=== PATIENT | male | born 1945 | race Caucasian/White ===

== ENCOUNTER → 2016-09-20 | Outpatient (CLI) | payer OTHER ==
[~2016-09-20] MED LIST: AMLO-110 PO; AMLO-114 PO; ATOR10TA82 PO; ATV/1 PO; ATV1 PO; B-COTAB18 PO; CALC1CHW PO; CARV12.52 PO; CARV25TA2 PO; CETI10TA84 PO; CHOL100010 PO; CINN1CAP2 PO; CLB/200 PO; DIPH-416 PO; HYDR-5688 PO; MAGN250T22 PO; MISC1CAP60 PO; MULT-506 PO; NEBI10TA2 PO; POTA99TA PO; PRLSR20 PO; RXC5 PO; rolaids
--- NOTE | 2016-09-20 09:40 | DIAGNOSTIC IMAGING REPORT ---
Study: Fusion CT of the sinuses HISTORY:. Nasal septal deviation. Chronic sinusitis. FINDINGS: Findings of prior antral window placement. This is patent on the right, with soft tissue occlusion of the left. The [place] ostiomeatal units are patent bilaterally. Prior partial nasal turbinate resection on the right.. Mild hypertrophic change of the left and to a lesser extent inferior residual right nasal turbinates. Mild nasal occlusive change. Very slight nasal septal deviation to the left. The frontal and sphenoid sinuses are clear. IMPRESSION: Prior partial right nasal turbinate resection. 2. Mild/moderate hypertrophic change of the residual nasal turbinates. Mild/moderate nasal occlusive change. 3. Soft tissue occlusion of the antral windows previous replaced with the ostiomeatal units patent bilaterally. 4. Sinuses specifically are generally clear with only minimal mucosal thickening of the left maxillary sinus. 5. Minimal nasal septal displacement to the left. Electronically signed by: Ceasar Soto M.D. 09/20/2016 9:38 AM Dictated Date/Time: 09/20/2016 9:32 AM
== END | disposition home or self-care (01) ==
LOC: C.CTS 08:50
DX: J34.2 Deviated nasal septum (principal)

== ENCOUNTER 2016-09-23 10:48 | Emergency (ER) | payer OTHER ==
[~2016-09-23] VITALS: Ht 162.6 cm; Wt 78.7 kg
[~2016-09-23 10:48] MED LIST changes: -AMLO-110 PO; -AMLO-114 PO; -ATV/1 PO; -B-COTAB18 PO; -CALC1CHW PO; -CARV12.52 PO; -CARV25TA2 PO; -CHOL100010 PO; -CINN1CAP2 PO; -CLB/200 PO; -HYDR-5688 PO; -MAGN250T22 PO; -MISC1CAP60 PO; -MULT-506 PO; -POTA99TA PO; -PRLSR20 PO
[2016-09-23 10:58] VITALS: TEMP 36.5; Ht 162.6 cm; Wt 78.7 kg
[2016-09-23] MEDS ORDERED: KETOROLAC TROMETHAMINE 60 MG/2 ML VIAL IM STA (11:09)
[2016-09-23] MEDS ORDERED: HYDROCODONE/ACETAMOPHEN 5/325MG TAB PO STA (11:09)
[2016-09-23] MEDS ORDERED: ATV/1 PO (11:40)
[2016-09-23] MEDS ORDERED: CALC1CHW PO (11:40)
[2016-09-23] MEDS ORDERED: AMLO-110 PO (11:40)
[2016-09-23] MEDS ORDERED: CARV25TA2 PO (11:40)
[2016-09-23] MEDS ORDERED: AMLO-114 PO (11:40)
--- NOTE | 2016-09-23 11:58 | EMERGENCY ROOM VISIT NOTE ---
ED Visit Note First contact with patient: 11:02 CHIEF COMPLAINT: Right shoulder pain HISTORY OF PRESENT ILLNESS: This 71-year-old male presents the ER with chief complaint of right shoulder pain. The patient states that his pain started 2 days ago. He denies any known injury. He does admit that he was driving a lot prior to the onset of his symptoms. The patient was seen at [place] [facility] last evening and had an x-ray of the shoulder. He was told he has calcific tendinitis. He was [facility] or he has been seen in the past. The patient states that also gave him a prescription for naproxen 500 mg. He states the pharmacy was not open last night so this morning he took 2 [id number] naproxen which equaled 440 mg without any relief of the shoulder pain. The patient denies any pain radiating down his arms or any numbness and tickling in his fingers. REVIEW OF SYSTEMS: 6 system review was performed and was negative unless stated otherwise in history of present illness. PMH: The patient is healthy; right knee replacement, 2 spinal surgeries, sinus surgery, hypertension, kidney stones SOCIAL HISTORY: Patient lives with his . The patient denies any tobacco or alcohol use. PHYSICAL EXAM: Vital Signs: Were reviewed Reviewed nurse's notes. GEN.: 71-year -old white male appears uncomfortable secondary to shoulder pain .MENTAL Status : Alert and oriented 3. RIGHT shoulder: No gross bony deformity noted. The patient is holding his arm down by his side. The patient has tenderness palpation over the superior aspect of the shoulder joint and extending medial towards the right side of his neck. The patient has limited range of motion in all directions due to pain. Environmental Remediation Engineer strength is 5 out of 5 as compared to the left. EMERGENCY DEPARTMENT COURSE: The patient was evaluated. I reviewed the patient' s handout from [facility]. The patient was given Toradol 60 mg IM and Hematite 5/325 mg 2 tablets by mouth for pain. The patient was reevaluated and was feeling better.. The patient was independently evaluated by Dr. Christianson who agree with treatment plan. The patient was discharged home in stable condition. DIAGNOSIS: Calcific tendinitis right shoulder DISCHARGE INSTRUCTIONS & TREATMENT: Apply ice and/or heat intermittently to the affected area, whichever makes it feel better. Take both the naproxen and the Hematite as directed for pain. Do not drive while taking the Hematite. Recommend range of motion exercises several times a day to prevent stiffness. Call [facility] on Saturday as previously directed for a follow-up appointment. Current/Historical Medications Scheduled Amlodipine (Norvasc), 5 MG PO DAILY Amlodipine (Norvasc), 10 MG PO DAILY Atorvastatin (Lipitor), 5 MG PO Q2D Carvedilol (Coreg), 12.5 MG PO BID Cetirizine (Zyrtec), 10 MG PO DAILY Diphenoxylate/Atropine (Lomotil), 1 TAB PO UD Lorazepam (Ativan), 0.5-1 MG PO HS Scheduled PRN Calcium Carbonate (Antacid) (Antacid Calcium Regular S), 1 TAB PO UD PRN for GI Upset Allergies Coded Allergies: Pravastatin (Verified Allergy, Mild, HIVES, 07/22/09) Codeine (Unverified Allergy, Unknown, VOMIT, 10/17/10) Molds and Smuts (Verified Allergy, Unknown, unk, 09/23/16) Eszopiclone (Verified Adverse Reaction, Intermediate, RESTLESS LEGS, ) RESTLESS LEG SYNDROME Simvastatin (Verified Adverse Reaction, Intermediate, GI INTOLERANCE, ) GI UPSET Vital Signs Date Time Temp Pulse Resp B/P Pulse Ox O2 Delivery O2 Flow Rate FiO2 09/23/16 10:58 36.5 74 18 127/73 94 Room Air Medications Administered Medications (Trade) Dose Ordered Sig/Christine Route Start Time Stop Time Status Last Admin Dose Admin Ketorolac Tromethamine (Toradol Inj) 60 mg NOW STAT IM 09/23/16 11:09 09/23/16 11:11 DC 09/23/16 11:25 60 MG Acetaminophen/ Hydrocodone Bitart (Hematite 5/325 Tab) 2 tab NOW STAT PO 09/23/16 11:09 09/23/16 11:11 DC 09/23/16 11:25 2 TAB Departure Information Referrals Piter Sofia M.D. (PCP) Patient Instructions My [facility]
[2016-09-23] MEDS ORDERED: HYDR-5688 PO (12:00)
[2016-09-23 12:08] VITALS: BP 118/76; PULSE 72; O2SAT 100
--- NOTE | 2016-09-25 22:28 | EMERGENCY ROOM VISIT NOTE ---
ED Visit Note First contact with patient: 11:02 I have personally seen and evaluated the patient with the PA. I agree with the diagnosis and management decisions and have been personally involved in the case. Please see Cecily Camargo PA-C's notes for further details of the history, physical and visit.
[2016-11-15] MEDS ORDERED: MISC1CAP60 PO (09:56)
[2016-11-15] MEDS ORDERED: B-COTAB18 PO (09:56)
[2016-11-15] MEDS ORDERED: PRLSR20 PO (09:56)
[2016-11-15] MEDS ORDERED: POTA99TA PO (09:56)
[2016-11-15] MEDS ORDERED: CHOL100010 PO (09:56)
[2016-11-15] MEDS ORDERED: CARV12.52 PO (09:56)
[2016-11-15] MEDS ORDERED: CINN1CAP2 PO (09:56)
[2016-11-15] MEDS ORDERED: CLB/200 PO (09:56)
[2016-11-15] MEDS ORDERED: ATOR10TA82 PO (09:56)
[2016-11-15] MEDS ORDERED: CETI10TA84 PO (09:56)
[2016-11-15] MEDS ORDERED: MULT-506 PO (09:56)
[2016-11-15] MEDS ORDERED: MAGN250T22 PO (09:56)
== END 2016-09-23 12:09 | disposition home or self-care (01) ==
LOC: C.EDB 10:49 → C.EDD 12:09
DX: M75.31 Calcific tendinitis of right shoulder (principal); M25.511 Pain in right shoulder; I10 Essential (primary) hypertension; Z96.651 Presence of right artificial knee joint

== ENCOUNTER → 2016-11-07 | Outpatient (CLI) | payer OTHER ==
[~2016-11-07] MED LIST changes: +AMLO-110 PO; +AMLO-114 PO; +ATV/1 PO; -ATV1 PO; +B-COTAB18 PO; +CALC1CHW PO; +CARV12.52 PO; +CARV25TA2 PO; +CHOL100010 PO; +CINN1CAP2 PO; +CLB/200 PO; +HYDR-5688 PO; +MAGN250T22 PO; +MISC1CAP60 PO; +MULT-506 PO; -NEBI10TA2 PO; +POTA99TA PO; +PRLSR20 PO; -RXC5 PO; -rolaids
[2016-11-07 12:57] LABS: BASO % 0.5 %; BASO ABS # 0.04 K/uL (0-0.2); COMPLETE YES; EOS % 1.1 %; HEMATOCRIT 41.6 % (42-52); IG% 0.3 %; LYMPH % 23.2 %; LYMPH ABS # 1.85 K/uL (1.2-3.4); MEAN CELL VOLUME 88.5 fL (80-100); MEAN CORPUSCULAR HEMOGLOBIN 29.8 pg (25-34); MEAN CORPUSCULAR HGB CONC 33.7 g/dl (32-36); MONO % 8.8 %; NEUT % 66.1 %; PLATELET COUNT 305 K/uL (130-400); WHITE BLOOD COUNT 7.98 K/uL (4.8-10.8)
[2016-11-07 13:05] LABS: PROTHROMBIN TIME (PATIENT) 10.9 SECONDS (9.0-12.0)
[2016-11-07 13:39] LABS: POTASSIUM 3.7 mmol/L (3.5-5.1)
== END | disposition home or self-care (01) ==
LOC: C.LABPBG 09:54
DX: Z01.818 Encounter for other preprocedural examination (principal)

== ENCOUNTER → 2016-11-19 | Day surgery (SDC) | payer OTHER ==
[2016-11-15 09:56] VITALS: Ht 162.6 cm; Wt 73.6 kg
[~2016-11-19] VITALS: Ht 162.6 cm; Wt 73.6 kg
[~2016-11-19] MED LIST changes: -AMLO-114 PO; +ATROPINE SULFATE 0.1 MG/ML 5ML SYR IV PRN; -CALC1CHW PO; -CARV25TA2 PO; +CEFAZOLIN 2000 MG/60 ML D5W IV SCH; +DEXAMETHASONE SOD INJ 4 MG/ML VIAL ONE; -DIPH-416 PO; +EpHEDrine SULFATE INJ 50 MG/ML AMP IV PRN; +EpINEphrine INJ 1MG/ML AMP 1 MG/ML AMP ONE; +FENTANYL CITRATE INJ 50 MCG/1 ML 2 ML VIAL IV PRN; +FENTANYL CITRATE INJ 50 MCG/1 ML 2 ML VIAL ONE; -HYDR-5688 PO; +HYDROCODONE/ACETAMOPHEN 5/325MG TAB PO PRN; +LACTATED RINGER'S 1000ML 1,000 ML IV SCH; +LIDOCAINE 4% MPF SOAK 5 ML = 1 DOSE TOP ONE; +LIDOCAINE HCL 2% 2 ML VIAL (20MG/ML) ONE; +LIDOCAINE/EPINEPHRINE 1% INJ 50 ML VIAL ONE; +MIDAZOLAM HCL 1 MG/ML 2ML VIAL ONE; +ONDANSETRON INJ 2 MG/ML 2 ML VIAL IV PRN; +ONDANSETRON INJ 2 MG/ML 2 ML VIAL ONE; +OXYMETAZOLINE HCL 0.05% NA SPR 15 ML BTL NAE SCH; +OXYMETAZOLINE HCL 0.05% NA SPR 15 ML BTL PRN; +PROMETHAZINE HCL INJ 6.25 MG in SODIUM CHLORIDE 0.9% 50ML 50 ML IV PRN; +PROPOFOL IV EMULSION 10 MG/ML 20 ML VIAL IV ONE; +ROCURONIUM BROMIDE 10 MG/ML 5 ML VIAL ONE; +SUCCINYLCHOLINE CHLORIDE 20 MG/ML 10 ML VIAL IV ONE
--- NOTE | 2016-11-19 09:34 | History & Physical Bridge - SC ---
H&P Re-Evaluation Bridge Note: I have examined the patient, reviewed the History & Physical and in the interval since the performance of the History & Physical I have noted the following changes of clinical significance: No changes noted
--- NOTE | 2016-11-19 09:38 | History and Physical: Surg Cnt ---
History & Physical Date Nov 19, 2016. Chief Complaint CHRONIC SINUSITIS, SEPTAL DEVIATION, BILATERAL INFERIOR TURBINATE HYPERTROPHY, LEFT NASAL ADHESIONS History of Present Illness The patient is a 71 year old male with complaints of CHRONIC SINUSITIS, SEPTAL DEVIATION, BILATERAL INFERIOR TURBINATE HYPERTROPHY, LEFT NASAL ADHESIONS UNRESPONSIVE TO MAXIMAL MEDICAL RX. Past Medical/Surgical History PMH: ANXIETY, DYSLIPIDEMIA, HTN, IBS, LUMBAR STENOSIS PSH: S/P B FESS, S/P LUMBAR LAMINECTOMY, S/P KNEE REPLACEMENT, S/P R KNEE ARTHROSCOPY Additional History Hepatic Disease: No Endocrine Disorder: No Kidney Disease: No Hypertension: No Heart Disease: No Bleeding Tendencies: No Infectious Diseases: No Allergies Coded Allergies: Pravastatin (Verified Allergy, Mild, HIVES, 11/19/16) Molds and Smuts (Verified Allergy, Unknown, unk, 11/19/16) Eszopiclone (Verified Adverse Reaction, Intermediate, RESTLESS LEGS, ) RESTLESS LEG SYNDROME Simvastatin (Verified Adverse Reaction, Intermediate, GI INTOLERANCE, ) GI UPSET Codeine (Verified Adverse Reaction, Unknown, VOMIT, 11/19/16) Home Medications Scheduled Amlodipine (Norvasc), 5 MG PO QAM Atorvastatin (Lipitor), 5 MG PO Q2D B-Complex Vitamins (Vitamin B Complex), 1 TAB PO QPM Carvedilol (Coreg), 1 TAB PO BID Celecoxib (CeleBREX), 200 MG PO QAM Cetirizine (Zyrtec), 10 MG PO QPM Cholecalciferol (Vitamin D), 1 TAB PO QPM Cinnamon (Cinnamon), 1 CAP PO QPM Lorazepam (Ativan), 0.5-1 MG PO HS Magnesium Oxide (Magnesium), 1 TAB PO QPM Misc Natural Products (Saw [place]), 1 CAP PO QPM Multivitamin (Multivitamin), 1 TAB PO QPM Omeprazole (Prilosec), 20 MG PO QAM Potassium (Potassium), 1 TAB PO QAM Physical Examination Skin: warm/dry, no rash Eyes: normal inspection, EOMI, sclerae normal ENT: + pertinent finding (HYPONASAL VOICE, L DNS WITH ADHESION BETWEEEN SEPTUM AND INFERIOR TURBINATE, R>L ITH) Head: normocephalic, atraumatic Neck: supple, no adenopathy, trachea midline Respiratory/Chest: lungs clear, normal breath sounds, no respiratory distress Cardiovascular: regular rate, rhythm, no edema, no murmur Neurologic/Psych: no motor/sensory deficits, alert, normal reflexes, oriented x 3 Diagnosis CHRONIC SINUSITIS, SEPTAL DEVIATION, BILATERAL INFERIOR TURBINATE HYPERTROPHY, LEFT NASAL ADHESIONS Plan of Treatment REVISION B FESS/SEPTOPLASTY/INFERIOR TURBINATE REDUCTION
--- NOTE | 2016-11-19 11:33 | [facility] Operative Report ---
Operative Report Operative Date Nov 19, 2016. Pre-Operative Diagnosis Chronic Sinusitis, Nasal Septal Deviation, Bilateral Inferior Turbinate Hypertrophy, Left Nasal Adhesions. Post-Operative Diagnosis same as preop Procedure(s) Performed REVISION BILATERAL ENDOSCOPIC SINUS SURGERY, REVISION SEPTOPLASTY, REVISION BILATERAL INFERIOR TURBINATE REDUCTION, ENDOSCOPIC LEFT NASAL LYSIS OF ADHESIONS Surgeon Dr. Haywood Computer Support Analyst Surgeon(s) none Estimated Blood Loss 10ML Findings 1. BILATERAL SRINIVASA BULLOSA WITH LEFT MIDDLE TURBINATE SCARRED DOWN TO LATERAL NASAL WALL 2. ADHESION BETWEEN LEFT SEPTUM AND INFERIOR TURBINATE 3. THICKENED NASAL SEPTUM CAUSING LEFT ANTEROSUPERIOR SEPTAL DEVIATION 4. BILATERAL INFERIOR TURBINATE HYPERTROPHY Specimens none per surgeon I attest to the content of the Intraoperative Record and any orders documented therein. Any exceptions are noted below.
--- NOTE | 2016-11-19 11:35 | Discharge Instructions ---
Discharge Instructions Date of Service Nov 19, 2016. Admission Reason for Admission: Chronic Sinusitis, Nasal Septal Deviation, Hypertr Discharge Discharge Diagnosis / Problem: SAME Discharge Goals Goal(s): Therapeutic intervention Activity Recommendations Activity Limitations: as noted below 1. LIGHT ACTIVITY AND NO NOSE BLOWING FOR 2 WEEKS 2. NO DRIVING WHILE ON NORCO . Current Hospital Diet Patient's current hospital diet: Discharge Diet Recommended Diet: Regular Diet Procedures Procedures Performed: REVISION BILATERAL ENDOSCOPIC SINUS SURGERY, REVISION SEPTOPLASTY, REVISION BILATERAL INFERIOR TURBINATE REDUCTION, ENDOSCOPIC LEFT NASAL LYSIS OF ADHESIONS Pending Studies Studies pending at discharge: no Medical Emergencies . Who to Call and When: Medical Emergencies: If at any time you feel your situation is an emergency, please call 911 immediately. . Non-Emergent Contact Non-Emergency issues call your: Surgeon . . "Provider Documentation" section prepared by Tam Haywood. . VTE Core Measure Inpt VTE Proph given/why not?: SCD's
[2016-11-19 12:37] VITALS: TEMP 36.4
--- NOTE | 2016-11-19 12:50 | Anesthesia Progress Nt - [facility] ---
Anesthesia Post Op Note Date & Time Nov 19, 2016 at 12:49 Vital Signs Pain Intensity: 0 Vital Signs Past 12 Hours Date Time Temp Pulse Resp B/P (MAP) Pulse Ox O2 Delivery O2 Flow Rate FiO2 11/19/16 12:28 73 21 85 11/19/16 12:28 72 21 11/19/16 12:27 163/81 11/19/16 12:25 36.6 71 14 163/81 97 Room Air 11/19/16 12:23 71 18 94 11/19/16 12:23 71 18 11/19/16 12:22 172/86 11/19/16 12:18 69 12 93 11/19/16 12:18 68 12 11/19/16 12:17 148/86 11/19/16 12:15 167/80 11/19/16 12:13 67 8 11/19/16 12:13 65 8 96 11/19/16 12:12 177/112 11/19/16 12:08 63 5 11/19/16 12:08 64 5 96 11/19/16 12:07 163/90 11/19/16 12:03 65 15 11/19/16 12:03 64 15 95 11/19/16 12:02 159/89 11/19/16 11:58 67 14 11/19/16 11:58 67 14 95 11/19/16 11:57 160/90 11/19/16 11:53 62 10 94 11/19/16 11:53 62 10 11/19/16 11:52 165/92 11/19/16 11:48 71 11 11/19/16 11:48 72 11 96 11/19/16 11:47 167/90 11/19/16 11:46 67 15 95 11/19/16 11:46 68 15 11/19/16 11:42 167/94 11/19/16 11:41 70 16 11/19/16 11:41 69 16 95 11/19/16 11:38 165/89 11/19/16 11:36 36.4 77 16 165/89 96 Humidified Oxygen 6 Diffusion Mask 11/19/16 08:55 36.3 67 20 166/92 (116) 95 Room Air Notes Mental Status: alert / awake / arousable, participated in evaluation Pt Amnestic to Procedure: Yes Nausea / Vomiting: adequately controlled Pain: adequately controlled Airway Patency, RR, SpO2: stable & adequate BP & HR: stable & adequate Hydration State: stable & adequate Anesthetic Complications: no major complications apparent
--- NOTE | 2016-11-19 13:10 | OPERATIVE REPORT ---
DATE OF OPERATION: 11/19/2016 PREOPERATIVE DIAGNOSES: 1. Chronic rhinosinusitis. 2. Left septal deviation. 3. Bilateral inferior turbinate hypertrophy. 4. Left sinonasal adhesions. POSTOPERATIVE DIAGNOSES: 1. Chronic rhinosinusitis. 2. Left septal deviation. 3. Bilateral inferior turbinate hypertrophy. 4. Left sinonasal adhesions. PROCEDURE: Revision, bilateral endoscopic sinus surgery consisting of: 1. Bilateral revision maxillary antrostomies. 2. Bilateral revision complete ethmoidectomies. 3. Bilateral endoscopic juno bullosa resection. 4. Left nasal lysis of adhesions/debridement. 5. Septoplasty. 6. Bilateral inferior turbinate outfracture and turbinoplasty. SURGEON: Tam Haywood MD ANESTHESIA: General endotracheal. ESTIMATED BLOOD LOSS: 10 mL. FINDINGS: 1. Very narrow nostrils bilaterally. 2. Left septal deviation anterosuperiorly. 3. Adhesion between the left septum and the inferior turbinate. 4. Adhesion between the left middle turbinate and lateral nasal wall blocking the left maxillary antrostomy and complete ethmoidectomy that was performed by another surgeon. 5. Narrow bilateral maxillary antrostomies. 6. Mild mucosal thickening involving the bilateral ethmoid sinuses. 7. Bilateral juno bullosa. SPECIMENS: None. COMPLICATIONS: None. INDICATIONS FOR THE PROCEDURE: The patient is a 71-year-old male who has undergone endoscopic sinus surgery, septoplasty, inferior turbinate reduction by another deicer repairer pneumatic in the past. He has continued to have problems primarily with left-sided sinonasal congestion and also recurrent sinus infections. A posttreatment CT scan sinuses revealed an ____ as well as on exam revealed an adhesion between the left nasal septum and the left inferior turbinate. There was also an adhesion between the left middle turbinate and lateral nasal wall, blocking the ethmoid cavity and maxillary sinus antrostomy. There was bilateral juno bullosa. There is mild mucosal thickening within the left maxillary sinus. The patient presents for the above-mentioned procedures on an outpatient elective basis. DETAILS OF PROCEDURE: After informed consent had been obtained from the patient, the patient was wheeled to the operating room and placed on the operating table in the supine position. Monitors were placed. After induction of general endotracheal anesthesia, the patient was prepped in the usual fashion for endoscopic sinus surgery. Lidocaine and epinephrine pledgets were placed in the bilateral nasal cavities and pressure applied. The left-sided pledgets were removed. Endoscopically, there was an adhesion between the septum and the inferior turbinate, which was lysed using a freer elevator. There was also an adhesion between the left middle turbinate and lateral nasal wall, which was also lysed with a freer elevator after first injecting the middle turbinate and lateral nasal wall with 1% lidocaine with 1:100,000 epinephrine. The middle turbinate was then medialized. Lidocaine and epinephrine pledget was then placed in the left middle meatus. The right side was then addressed. The right middle turbinate and lateral nasal wall injected with 1% lidocaine with 1:100,000 epinephrine. A lidocaine and epinephrine pledget was then placed in the right middle meatus. The left pledget was removed. Powered instrumentation was used to remove the scar tissue and adhesion between the left middle turbinate and lateral nasal wall. There was some small residual uncinate process, which was removed using powered instrumentation. An endoscopic juno bullosa resection was then performed using straight Manuel-Cut forceps and powered instrumentation removing the lateral half of the left middle turbinate. The previous left maxillary antrostomy was quite narrow and this was enlarged anteriorly, inferiorly, and posteriorly using straight Manuel-Cut forceps, and powered instrumentation. A revision complete ethmoidectomy was then performed using powered instrumentation. A lidocaine and epinephrine pledget was then placed in the left ethmoid cavity. The right side was then addressed. On this side, there was also a small juno bullosa which was removed as described on the left hand side. The previous right maxillary antrostomy was also enlarged as well as and revision complete ethmoidectomy was performed, as described on the left hand side. The nasal septum was then injected with 1% lidocaine with 1:100,000 epinephrine. Lidocaine and epinephrine pledgets were placed in the bilateral nasal cavities and pressure applied. After allowing adequate time for vasoconstriction, the pledgets were removed and a #15 scalpel was used to make a left [place] incision through which a left-sided mucoperichondrial mucoperiosteal flap was elevated. A #15 scalpel was then used to incise the quadrangular cartilage with care to preserve a 1.5 cm dorsal and caudal strut. The right-sided mucoperichondrial mucoperiosteal flap was then elevated. Of note, the patient has very thickened septal cartilage, which was impinging on the nasal airway anterosuperiorly on the left hand side. Pito-Peguero forceps was used to remove deviated portions of the quadrangular cartilage as well as septal bone which was causing this obstruction. The septal cavity was then suctioned. The left [place] incision was closed with several simple interrupted 4-0 chromic sutures. A 4-0 plain gut suture on a Byron needle was then used to perform a quilting stitch of the mucoperichondrial mucoperiosteal flaps bilaterally to help prevent septal hematoma. A Najera elevator was then used to infracture and subsequently outfracture the inferior turbinates bilaterally. The inferior turbinates were injected with 1% lidocaine with 1:100,000 epinephrine. A 2.0 mm turbinate blade using powered instrumentation was then used to perform bilateral inferior turbinoplasties in a submucosal fashion. The sinonasal cavities and nasopharynx were then suctioned. Merogel was placed in the bilateral ethmoid cavities. An orogastric tube was placed and the stomach was suctioned free of air and stomach contents. This marked the end of the case. The patient tolerated the procedure well. There were no apparent complications. The patient was extubated and transferred to recovery room in stable condition. I attest to the content of the Intraoperative Record and any orders documented therein. Any exception s are noted below.
[2016-11-19 13:16] VITALS: BP 187/79; PULSE 75; O2SAT 95
== END | disposition home or self-care (01) ==
LOC: X.SURG 08:26
DX: J32.9 Chronic sinusitis, unspecified (principal); J34.2 Deviated nasal septum; J34.3 Hypertrophy of nasal turbinates; J34.89 Other specified disorders of nose and nasal sinuses; E78.5 Hyperlipidemia, unspecified; I10 Essential (primary) hypertension; E78.00 Pure hypercholesterolemia, unspecified; K21.9 Gastro-esophageal reflux disease without esophagitis

== ENCOUNTER → 2016-12-25 | Outpatient (CLI) | payer OTHER ==
[~2016-12-25] MED LIST changes: -ATOR10TA82 PO; +ATOR10TA88 PO; -ATROPINE SULFATE 0.1 MG/ML 5ML SYR IV PRN; -CEFAZOLIN 2000 MG/60 ML D5W IV SCH; -CLB/200 PO; -DEXAMETHASONE SOD INJ 4 MG/ML VIAL ONE; -EpHEDrine SULFATE INJ 50 MG/ML AMP IV PRN; -EpINEphrine INJ 1MG/ML AMP 1 MG/ML AMP ONE; -FENTANYL CITRATE INJ 50 MCG/1 ML 2 ML VIAL IV PRN; -FENTANYL CITRATE INJ 50 MCG/1 ML 2 ML VIAL ONE; -HYDROCODONE/ACETAMOPHEN 5/325MG TAB PO PRN; -LACTATED RINGER'S 1000ML 1,000 ML IV SCH; -LIDOCAINE 4% MPF SOAK 5 ML = 1 DOSE TOP ONE; -LIDOCAINE HCL 2% 2 ML VIAL (20MG/ML) ONE; -LIDOCAINE/EPINEPHRINE 1% INJ 50 ML VIAL ONE; -MIDAZOLAM HCL 1 MG/ML 2ML VIAL ONE; -ONDANSETRON INJ 2 MG/ML 2 ML VIAL IV PRN; -ONDANSETRON INJ 2 MG/ML 2 ML VIAL ONE; -OXYMETAZOLINE HCL 0.05% NA SPR 15 ML BTL NAE SCH; -OXYMETAZOLINE HCL 0.05% NA SPR 15 ML BTL PRN; -PROMETHAZINE HCL INJ 6.25 MG in SODIUM CHLORIDE 0.9% 50ML 50 ML IV PRN; -PROPOFOL IV EMULSION 10 MG/ML 20 ML VIAL IV ONE; -ROCURONIUM BROMIDE 10 MG/ML 5 ML VIAL ONE; -SUCCINYLCHOLINE CHLORIDE 20 MG/ML 10 ML VIAL IV ONE
[2016-12-25 13:06] LABS: ESTIMATED AVERAGE GLUCOSE 120 mg/dl; HA1C FLAG Normal (Normal)
[2016-12-25 13:20] LABS: ALT/SGPT 21 U/L (12-78); AST/SGOT 8 U/L (15-37); BLOOD UREA NITROGEN 13 mg/dl (7-18); BUN/CREATININE RATIO 16.7 (10-20); CALCIUM 8.9 mg/dl (8.5-10.1); CARBON DIOXIDE 28 mmol/L (21-32); CHLORIDE 103 mmol/L (98-107); CREATININE 0.78 mg/dl (0.60-1.40); GLUCOSE 94 mg/dl (70-99); POTASSIUM 3.8 mmol/L (3.5-5.1); SODIUM 137 mmol/L (136-145)
[2016-12-25 13:25] LABS: ALKALINE PHOSPHATASE 50 U/L (45-117); CHOLESTEROL 195 mg/dl (0-200); CHOLESTEROL/HDL RATIO 3.3; HDL CHOLESTEROL 59 mg/dl; LDL CHOLESTEROL CALCULATED 107 mg/dl; TRIGLYCERIDES 145 mg/dl (0-150); VERY LOW DENSITY LIPOPROT CALC 29 mg/dl
--- NOTE | 2017-01-02 07:11 | CODING QUERY MEDICAL NECESSITY ---
SUPPORTING DIAGNOSIS NEEDED A supporting diagnosis is required for the test/procedure performed on this patient in order for us to be reimbursed by the patient's insurance. Please provide a supporting diagnosis for the following test/procedure listed below next to the test name along with your signature. *If there is no additional diagnosis for this patient that would support the following test/procedure please document that below next to the test/procedure. Test(s)/Procedure(s) that require a supporting diagnosis: * PSA DIAGNOSIS: * HEMOGLOBIN A1C DIAGNOSIS: Provider Signature: Date: Thank you Christina Kyle [facility] Information Management Once completed, please kindly fax back to [phone] For questions please call [phone]
== END | disposition home or self-care (01) ==
LOC: C.LABPBG 09:18
PROVIDERS: ATTEND Internal Medicine
DX: M48.06 Spinal stenosis, lumbar region (principal); Z12.5 Encounter for screening for malignant neoplasm of prostate; R73.01 Impaired fasting glucose

== ENCOUNTER → 2017-09-24 | Outpatient (CLI) | payer OTHER ==
[~2017-09-24] MED LIST changes: +ATOR10TA82 PO; -ATOR10TA88 PO
[2017-09-24 12:59] LABS: BASO % 0.8 %; BASO ABS # 0.05 K/uL (0-0.2); EOS % 4.7 %; HEMOGLOBIN 14.5 g/dL (14.0-18.0); IG# 0.02 K/uL (0.00-0.02); LYMPH % 31.4 %; LYMPH ABS # 2.02 K/uL (1.2-3.4); MEAN CELL VOLUME 87.5 fL (80-100); MEAN CORPUSCULAR HEMOGLOBIN 30.2 pg (25-34); MEAN CORPUSCULAR HGB CONC 34.5 g/dl (32-36); MEAN PLATELET VOLUME 8.9 fL (7.4-10.4); MONO % 13.5 %; MONO ABS # 0.87 K/uL (0.11-0.59); NEUT % 49.3 %; NEUT ABS # 3.18 K/uL (1.4-6.5); PLATELET COUNT 286 K/uL (130-400); RED CELL DISTRIBUTION WIDTH CV 13.7 % (11.5-14.5); RED CELL DISTRIBUTION WIDTH SD 43.7 fL (36.4-46.3); WHITE BLOOD COUNT 6.44 K/uL (4.8-10.8)
[2017-09-24 13:18] LABS: ALBUMIN 3.5 gm/dl (3.4-5.0); ALT/SGPT 22 U/L (12-78); AST/SGOT 9 U/L (15-37); BLOOD UREA NITROGEN 17 mg/dl (7-18); CALCIUM 8.7 mg/dl (8.5-10.1); CARBON DIOXIDE 28 mmol/L (21-32); CREATININE 0.93 mg/dl (0.60-1.40); GLUCOSE 107 mg/dl (70-99); POTASSIUM 3.9 mmol/L (3.5-5.1); SODIUM 135 mmol/L (136-145)
[2017-09-24 13:20] LABS: ALKALINE PHOSPHATASE 46 U/L (45-117); CHOLESTEROL 214 mg/dl (0-200); LDL CHOLESTEROL CALCULATED 127 mg/dl; TOTAL PROTEIN 6.9 gm/dl (6.4-8.2)
[2017-09-24 13:28] LABS: HEMOGLOBIN A1C 5.9 % (4.5-5.6)
== END | disposition home or self-care (01) ==
LOC: C.LABPBG 08:46
PROVIDERS: ATTEND Internal Medicine
DX: I10 Essential (primary) hypertension (principal); E78.5 Hyperlipidemia, unspecified; M54.5 Low back pain; M48.061 Spinal stenosis, lumbar region without neurogenic claudication; R73.01 Impaired fasting glucose; J32.9 Chronic sinusitis, unspecified

== ENCOUNTER 2018-01-08 08:03 | Inpatient (IN) | payer OTHER ==
[2017-12-06 14:25] VITALS: BMI 29.0
--- NOTE | 2017-12-25 10:41 | PAT Medication Instructions ---
Service Date Dec 25, 2017. Current Home Medication List Amlodipine (Norvasc), 5 MG PO QAM Atorvastatin (Lipitor), 5 MG PO Q2D Carvedilol (Coreg), 1 TAB PO BID Cetirizine (Zyrtec), 10 MG PO QPM Cinnamon (Cinnamon), 1 CAP PO QPM Krill Oil (Krill Oil), 1 TAB PO QPM Lorazepam (Ativan), 0.5-1 MG PO HS Magnesium Oxide (Magnesium), 1 TAB PO QPM Misc Natural Products (Saw [place]), 1 CAP PO QPM Omeprazole (Prilosec), 20 MG PO QAM Potassium (Potassium), 1 TAB PO QPM Tramadol (Ultram), 25 MG PO Q8H PRN for Pain Medication Instructions For Your Scheduled Surgery - Hold the following medications 2 weeks prior to surgery: Cinnamon (Cinnamon), 1 CAP PO QPM Krill Oil (Krill Oil), 1 TAB PO QPM Misc Natural Products (Saw [place]), 1 CAP PO QPM - Take the following medications the morning of surgery with a sip of water: Amlodipine (Norvasc), 5 MG PO QAM Carvedilol (Coreg), 1 TAB PO BID Omeprazole (Prilosec), 20 MG PO QAM Tramadol (Ultram), 25 MG PO Q8H PRN for Pain (if needed, may be taken up to four hours before surgery) - Take the following medications as scheduled the night before surgery: Atorvastatin (Lipitor), 5 MG PO Q2D Carvedilol (Coreg), 1 TAB PO BID Cetirizine (Zyrtec), 10 MG PO QPM Lorazepam (Ativan), 0.5-1 MG PO HS Magnesium Oxide (Magnesium), 1 TAB PO QPM Potassium (Potassium), 1 TAB PO QPM Tramadol (Ultram), 25 MG PO Q8H PRN for Pain (if needed) If you have any questions please call us at [phone] or [phone] or [phone]
[2017-12-25 11:10] LABS: BASO % 0.5 %; BASO ABS # 0.04 K/uL (0-0.2); EOS % 4.6 %; EOS ABS # 0.38 K/uL (0-0.5); HEMATOCRIT 42.9 % (42-52); HEMOGLOBIN 14.7 g/dL (14.0-18.0); IG# 0.02 K/uL (0.00-0.02); LYMPH % 26.7 %; LYMPH ABS # 2.22 K/uL (1.2-3.4); MEAN CELL VOLUME 86.5 fL (80-100); MEAN CORPUSCULAR HEMOGLOBIN 29.6 pg (25-34); MEAN CORPUSCULAR HGB CONC 34.3 g/dl (32-36); MEAN PLATELET VOLUME 9.2 fL (7.4-10.4); NEUT ABS # 4.65 K/uL (1.4-6.5); PLATELET COUNT 324 K/uL (130-400); RED CELL DISTRIBUTION WIDTH SD 41.3 fL (36.4-46.3); WHITE BLOOD COUNT 8.31 K/uL (4.8-10.8)
--- NOTE | 2017-12-25 11:20 | DIAGNOSTIC IMAGING REPORT ---
CHEST 2 VIEWS ROUTINE CLINICAL HISTORY: Preoperative chest COMPARISON STUDY: September 2013 FINDINGS: The cardiac and mediastinal contours are normal. There is no evidence of focal pulmonary consolidation. There is no evidence of failure. No pleural effusions are visualized.[ IMPRESSION: No active disease in the chest. Electronically signed by: Jac Obregon M.D. 12/25/2017 11:19 AM Dictated Date/Time: 12/25/2017 11:19 AM
[2017-12-25 11:28] LABS: PTT PATIENT 26.6 SECONDS (21.0-31.0)
[2017-12-25 12:08] LABS: CALCIUM 8.3 mg/dl (8.5-10.1); CREATININE 0.92 mg/dl (0.60-1.40)
[~2018-01-08] VITALS: Ht 165.1 cm; Wt 83.1 kg
[2018-01-08] VITALS (8 sets, daily range): BP systolic 122–162; BP diastolic 69–85; PULSE 62–80; TEMP 36.4–36.8; O2SAT 90–96; Ht 165.1 cm; Wt 83.1 kg
[~2018-01-08 08:03] MED LIST changes: +ACETAMINOPHEN 500 MG TAB PO SCH; -AMLO-110 PO; +AMLO5TAB3 PO; -B-COTAB18 PO; +CEFAZOLIN 1000MG IV PUSH 7.5 ML IV SCH; -CHOL100010 PO; +CeleBREX 200 MG CAP PO SCH; +GABAPENTIN 300 MG CAP PO SCH; +KRIL1000 PO; +LACTATED RINGER'S 1000ML 1,000 ML IV SCH; -MULT-506 PO; +TRAM-10 PO
[2018-01-08] MEDS ORDERED: ONDANSETRON INJ 2 MG/ML 2 ML VIAL ONE (08:20)
[2018-01-08] MEDS ORDERED: DEXAMETHASONE SOD INJ 4 MG/ML VIAL ONE (08:20)
[2018-01-08] MEDS ORDERED: NEOSTIGMINE METHYLSULFATE 1 MG/ML 10ML VIAL ONE (08:20)
[2018-01-08] MEDS ORDERED: ROCURONIUM BROMIDE 10 MG/ML 5 ML VIAL ONE (08:20)
[2018-01-08] MEDS ORDERED: GLYCOPYRROLATE INJ 0.2 MG/ML VIAL ONE (08:20)
[2018-01-08] MEDS ORDERED: MIDAZOLAM HCL 1 MG/ML 2ML VIAL ONE (08:21)
[2018-01-08] MEDS ORDERED: HYDROmorphone INJ 2 MG/ML SYR/VIAL ONE (08:21)
[2018-01-08] MEDS ORDERED: FENTANYL CITRATE INJ 50 MCG/1 ML 2 ML VIAL ONE (08:21)
[2018-01-08] MEDS ORDERED: PHENYLEPHRINE 100MCG/ML 5ML SYR IV PRN (09:00)
[2018-01-08] MEDS ORDERED: ATROPINE SULFATE 0.1 MG/ML 5ML SYR IV PRN (09:00)
[2018-01-08] MEDS ORDERED: EpHEDrine SULFATE INJ 50 MG/ML AMP IV PRN (09:00)
[2018-01-08] MEDS ORDERED: ONDANSETRON INJ 2 MG/ML 2 ML VIAL IV PRN ×2 (09:00→12:15)
[2018-01-08] MEDS ORDERED: HYDROmorphone INJ 0.5 MG/0.5 ML SYR IV PRN ×2 (09:00→14:00)
--- NOTE | 2018-01-08 09:12 | History and Physical ---
History & Physical Date Jan 08, 2018. Chief Complaint Back and leg pain History of Present Illness The patient is a 72 year old male with complaints of back and leg pain Additional History Hepatic Disease: No Endocrine Disorder: No Kidney Disease: No Hypertension: Yes Heart Disease: No Bleeding Tendencies: No Infectious Diseases: No Allergies Coded Allergies: Pravastatin (Verified Allergy, Mild, HIVES, 01/08/18) Molds and Smuts (Verified Allergy, Unknown, NASAL CONGESTION, 01/08/18) Eszopiclone (Verified Adverse Reaction, Intermediate, RESTLESS LEGS, ) RESTLESS LEG SYNDROME Simvastatin (Verified Adverse Reaction, Intermediate, GI INTOLERANCE, 01/08) GI UPSET Codeine (Verified Adverse Reaction, Unknown, VOMIT, 01/08/18) Home Medications Scheduled Amlodipine (Norvasc), 5 MG PO QAM Atorvastatin (Lipitor), 5 MG PO Q2D Carvedilol (Coreg), 1 TAB PO BID Cetirizine (Zyrtec), 10 MG PO QPM Cinnamon (Cinnamon), 1 CAP PO QPM Krill Oil (Krill Oil), 1 TAB PO QPM Lorazepam (Ativan), 0.5-1 MG PO HS Magnesium Oxide (Magnesium), 1 TAB PO QPM Misc Natural Products (Saw [place]), 1 CAP PO QPM Omeprazole (Prilosec), 20 MG PO QAM Potassium (Potassium), 1 TAB PO QPM Scheduled PRN Tramadol (Ultram), 25 MG PO Q8H PRN for Pain Physical Examination Skin: warm/dry, no rash Eyes: normal inspection, EOMI, sclerae normal ENT: normal ENT inspection, pharynx normal Head: normocephalic, atraumatic Neck: supple, no adenopathy, trachea midline Respiratory/Chest: lungs clear, normal breath sounds, no respiratory distress Cardiovascular: regular rate, rhythm, no edema, no murmur Abdomen / GI: normal bowel sounds, non tender Back: normal inspection Extremities: normal inspection, normal range of motion Neurologic/Psych: no motor/sensory deficits, alert, normal reflexes, oriented x 3 Diagnosis Lumbar spinal stenosis with neurogenic claudication Plan of Treatment Hardware removal L2-L4 decompression L1-L2 fusion T12 S1
[2018-01-08] MEDS ORDERED: ALBUMIN HUMAN 5% 12.5 GM/250 ML VIAL IV ONE (09:36)
[2018-01-08] MEDS ORDERED: BUPIVACAINE/EPINEPHRINE 0.5% MPF 1:200,000 30 ML VIAL ONE (09:37)
[2018-01-08] MEDS ORDERED: BACITRACIN 50000 UNIT VIAL ONE (09:38)
[2018-01-08] MEDS ORDERED: THROMBIN FOR SOLN 20000 UNIT KIT ONE (09:56)
[2018-01-08] MEDS ORDERED: BUPIVACAINE 0.5 % 5 MG/1 ML PF 10ML VIAL ONE (10:15)
[2018-01-08] MEDS ORDERED: BUPIVACAINE LIPOSOME 1/3% 266 MG/20 ML VIAL ONE (10:15)
[2018-01-08] MEDS ORDERED: SODIUM CHLORIDE 0.9% PF 50 ML VIAL ONE (10:16)
[2018-01-08] MEDS ORDERED: PHENYLEPHRINE 100MCG/ML 5ML SYR ONE (10:25)
[2018-01-08] MEDS ORDERED: EpHEDrine SULFATE 50MG/5ML SYR ONE (10:25)
--- NOTE | 2018-01-08 12:02 | [facility] Operative Report ---
Operative Report Operative Date Jan 08, 2018. Pre-Operative Diagnosis Lumbar spinal stenosis with neurogenic claudication Post-Operative Diagnosis Lumbar spinal stenosis with neurogenic claudication Procedure(s) Performed 1. Removal of posterior segmental instrumentation L2-L4. 2 expiration of fusion L2-L4. #3 lumbar decompression medial facetectomies foraminotomies T12-L1 L1-L2 #4 posterior spinal fusion T11-L3. #5 placement posterior segmental instrument T11-L4. #6 interbody fusion L1 to. #7 placement peek cage 8 x 22 mm L1 to. #8 placement of local autograft in the posterior gutters per #9 placement InFUSE: Sponge mesh graft in the posterior gutters and ostial amp in the interbody space. Surgeon brielle Composite Layup Worker Surgeon(s) Aaron Estimated Blood Loss 300 Description of Procedure Patient was met with preoperatively case discussed all questions addressed. After informed consent obtained patient was taken to the operative suite underwent intubation placed in a prone position on the Capo table on top of the Michael frame. All bony prominences well-padded eyes inspected to ensure no external pressure responded at this point the lumbar spine was prepped and draped in a sterile fashion with sharp dissection with the assistance Bovie cautery was performed down to and exposing the lamina transposes of T11-T12 L1 and instrumentation at L2-L3-L4 bilaterally. I then proceeded with hardware L2- L3-L4 bilaterally explain the fusion mass noting it to be intact. Then performed complete laminectomy of L1 partial laminectomy of T12 addressing severe lateral recess foraminal disease. Pedicle screws were then placed in T11 -T12 L1-L2 and L4 bilaterally with the assistance of fluoroscopy and appropriately sized earnest placed. Through a trans-frontal approach on the right complete discectomy of L1-2 was performed endplates created to subcortical bleeding bone and a 8 x 22 mm peek cage filled with ostium bone graft tapped in position. The rods were then locked in final position bilaterally. The transverse processes of T11-T12 L1-L2-L3 burred to subcortical bleeding bone. Infuse collagen sponge mass graft local autograft placed in the posterior gutters. Approximately 150 cc of Exparel injected into the musculature. 15 round MJ drain inserted. The incision was then closed with 1 Vicryl fascia 2-0 Vicryl substantially 4 Monocryl for fast closure Steri-Strips sterile dressings placed. Patient will continue PACU stable discrete please note Norma Houston was present throughout the entire procedure involved in patient positioning complex portions of the surgery and fashion closure. I attest to the content of the Intraoperative Record and any orders documented therein. Any exceptions are noted below.
[2018-01-08] MEDS ORDERED: FLOSEAL HEMOSTATIC MATRIX 10ML TOP ONE (12:06)
[2018-01-08] MEDS ORDERED: ALUMINUM/MAGNESIUM SUSP 30 ML UDC PO PRN (12:15)
[2018-01-08] MEDS ORDERED: PROMETHAZINE HCL INJ 12.5 MG in SODIUM CHLORIDE 0.9% 50ML 50 ML IV PRN (12:15)
[2018-01-08] MEDS ORDERED: DO NOT ADMINISTER PNEUMOCOCCAL VACCINE PRN (12:15)
[2018-01-08] MEDS ORDERED: MAGNESIUM HYDROXIDE SUSP 30 ML UDC PO PRN (12:15)
[2018-01-08] MEDS ORDERED: DO NOT ADMINISTER FLU VACCINE PRN (12:15)
[2018-01-08] MEDS ORDERED: FAMOTIDINE 20 MG TAB PO PRN (12:15)
[2018-01-08] MEDS ORDERED: ACETAMINOPHEN IV 100 ML IV PRN (12:15)
[2018-01-08] MEDS ORDERED: hydrOXYzine HCL 25 MG TAB PO PRN (12:15)
[2018-01-08] MEDS ORDERED: NALOXONE HCL 0.4 MG/1 ML VIAL/CARP IV PRN (12:15)
[2018-01-08] MEDS ORDERED: TRAMADOL HCL 50 MG TAB PO PRN (12:15)
[2018-01-08] MEDS ORDERED: SOD PHOSPHATE/SOD BIPHOSPHATE ENEMA 132 ML BTL PR PRN (12:15)
[2018-01-08] MEDS ORDERED: LORAZEPAM 0.5 MG TAB PO PRN (12:15)
[2018-01-08] MEDS ORDERED: BISACODYL 10 MG SUPP PR PRN (12:15)
[2018-01-08] MEDS ORDERED: ACETAMINOPHEN 500 MG TAB PO PRN (12:15)
[2018-01-08] MEDS ORDERED: METOCLOPRAMIDE HCL INJ 5 MG/ML 2 ML VIAL IV PRN (12:15)
[2018-01-08] MEDS ORDERED: LORAZEPAM INJ 0.5 MG in SYRINGE 0 ML IV PRN (12:15)
--- NOTE | 2018-01-08 12:26 | DIAGNOSTIC IMAGING REPORT ---
LUMBAR SPINE 2 OR 3 VIEW CLINICAL HISTORY: L2-4 REMOVE HARDWARE/T11-S1 DECOMPRESSION/FUSION TECHNIQUE: Image intensifier. COMPARISON STUDY: None FINDINGS: Fluoroscopy time 23 seconds. 7 images acquired. Findings consistent with L1-L2 hardware removal and T8 through through L4 decompression and fusion. IMPRESSION: T11-L4 decompression and fusion. The above report was generated using voice recognition software. It may contain grammatical, syntax or spelling errors. Electronically signed by: Ceasar Soto M.D. 01/08/2018 12:24 PM Dictated Date/Time: 01/08/2018 12:23 PM
[2018-01-08] MEDS: FENTANYL CITRATE INJ 50 MCG/1 ML 2 ML VIAL IV PRN ×3 (12:41→12:56)
--- NOTE | 2018-01-08 13:10 | Anesthesiology Progress Note ---
Anesthesia Progress Note Date of Service Jan 08, 2018. Progress Notes Arterial line placed in OR at 10 AM in preparation for back surgery with Dr. Wolfe. Left wrist prepped with chlorhexidine and draped with sterile towels. 20 G angiocath placed under sterile technique utilizing sterile gloves, surgical hats and masks. Catheter threaded using seldinger technique with return of pulsatile, bright red blood. Site covered with occlusive dressing and taped in place. Waveform consistent with correct arterial placement. After placement, fingers of right hand had normal perfusion. Patient tolerated procedure well without complications.
--- NOTE | 2018-01-08 13:21 | Anesthesiology Progress Note ---
Anesthesia Post Op Note Date & Time Jan 08, 2018 at 13:21 Vital Signs Pain Intensity: 4 Vital Signs Past 12 Hours Date Time Temp Pulse Resp B/P (MAP) Pulse Ox O2 Delivery O2 Flow Rate FiO2 01/08/18 13:05 36.2 67 16 146/74 97 Nasal Cannula 2 01/08/18 12:55 64 12 146/75 97 Nasal Cannula 2 01/08/18 12:45 62 14 157/78 (88) 94 Nasal Cannula 2 01/08/18 12:35 63 14 152/79 (91) 100 Oxymask 10 01/08/18 12:25 67 20 157/75 (110) 99 Oxymask 10 01/08/18 12:19 36.6 63 9 155/75 (90) 99 Oxymask 10 01/08/18 08:36 36.8 62 20 162/78 94 Room Air Notes Mental Status: alert / awake / arousable, participated in evaluation Pt Amnestic to Procedure: Yes Nausea / Vomiting: adequately controlled Pain: adequately controlled Airway Patency, RR, SpO2: stable & adequate BP & HR: stable & adequate Hydration State: stable & adequate Anesthetic Complications: no major complications apparent
[2018-01-08] MEDS: SODIUM CHLORIDE 0.9% 1000ML 1,000 ML IV SCH ×2 (14:23→20:54)
[2018-01-08] MEDS: OXYCODONE HCL IR 5 MG TAB (IMMEDIATE RELEASE) PO PRN ×2 (14:24→19:07)
--- NOTE | 2018-01-08 16:23 | Medical Consult ---
Consultation Date of Consultation: Jan 08, 2018. Attending Physician: Antonio Wolfe D.O. History of Present Illness 72y/oM with hx of HTN, HLD, IBS with lactose intolerance, allergic rhinitis and osteoarthritis s/p T11-L4 decompression/fusion surgery day 0 evaluated per surgeon consultation. Pt reports pain well controlled on current pain regimen of tylenol and oxycodone. Denies any f/c, ROBERTS/dizziness, sob, cp, abdominal pain , n/v, d/c. Pt on maria and had normal BM this morning pre-op. No other concerns at this time. Past Medical/Surgical History Medical Problems: (1) Calcific tendinitis of right shoulder Status: Acute Social History Smoking Status: Former Smoker Marital Status: Allergies Coded Allergies: Pravastatin (Verified Allergy, Mild, HIVES, 01/08/18) Molds and Smuts (Verified Allergy, Unknown, NASAL CONGESTION, 01/08/18) Eszopiclone (Verified Adverse Reaction, Intermediate, RESTLESS LEGS, ) RESTLESS LEG SYNDROME Simvastatin (Verified Adverse Reaction, Intermediate, GI INTOLERANCE, 01/08) GI UPSET Codeine (Verified Adverse Reaction, Unknown, VOMIT, 01/08/18) Current Inpatient Medications Current Inpatient Medications Medications (Trade) Dose Ordered Sig/Christine Route Start Time Stop Time Status Last Admin Dose Admin Cefazolin Sodium 7.5 ml @ 2.5 mls/min PREOP IV 01/08/18 06:00 01/08/18 18:00 01/08/18 09:52 2.5 MLS/MIN Lactated Ringer's 1,000 ml @ 15 mls/hr Q24H IV 01/08/18 06:00 01/09/18 05:59 01/08/18 09:05 15 MLS/HR Acetaminophen (Tylenol Tab) 1,000 mg PREOP PO 01/08/18 06:00 01/08/18 18:00 Celecoxib (CeleBREX CAP) 200 mg PREOP PO 01/08/18 06:00 01/08/18 18:00 Gabapentin (Neurontin Cap) 300 mg PREOP PO 01/08/18 06:00 01/08/18 18:00 Promethazine HCl 12.5 mg/Sodium Chloride 50.5 ml @ 202 mls/hr Q6H PRN IV 01/08/18 12:15 02/07/18 12:14 Ondansetron HCl (Zofran Inj) 4 mg Q6H PRN IV 01/08/18 12:15 02/07/18 12:14 Metoclopramide HCl (Reglan Inj) 10 mg Q6H PRN IV 01/08/18 12:15 02/07/18 12:14 Lorazepam (Ativan Tab) 0.5 mg Q8H PRN PO 01/08/18 12:15 02/07/18 12:14 Lorazepam 0.5 mg/ Syringe 0.25 ml @ 1 mls/min Q8H PRN IV 01/08/18 12:15 02/07/18 12:14 Pneumococcal Polysaccharide Vaccine 1 ea PRN PRN N/A 01/08/18 12:15 02/07/18 12:14 Influenza Virus Vacc Triv Types A&B 1 ea PRN PRN N/A 01/08/18 12:15 02/07/18 12:14 Polyethylene (Miralax Powder Packet) 17 gm Q6 PO 01/10/18 06:00 02/09/18 05:59 Bisacodyl (Dulcolax Supp) 10 mg DAILY PRN NE 01/08/18 12:15 02/07/18 12:14 Magnesium Hydroxide (Milk Of Magnesia Susp) 30 ml DAILY PRN PO 01/08/18 12:15 02/07/18 12:14 Hydromorphone HCl (Dilaudid Inj) 0.5-1mg prn moder... Q3H PRN IV 01/08/18 14:00 01/22/18 13:59 Oxycodone HCl (Roxicodone Immediate Rel Tab) 5-10mg prn moderate to sev... Q4H PRN PO 01/08/18 14:00 01/22/18 13:59 01/08/18 14:24 10 MG Cefazolin Sodium 2000 mg/Syringe 15 ml @ 3.75 mls/ min Q8H IV 01/08/18 18:00 01/09/18 02:03 Sodium Chloride 1,000 ml @ 150 mls/hr Q6H40M IV 01/08/18 14:15 02/07/18 14:14 01/08/18 14:23 150 MLS/HR Acetaminophen (Tylenol Tab) 1,000 mg Q8H PRN PO 01/08/18 12:15 02/07/18 12:14 Acetaminophen 100 ml @ 400 mls/hr Q8H PRN IV 01/08/18 12:15 02/07/18 12:14 Naloxone HCl (Narcan Inj) 0.1 mg Q5M PRN IV 01/08/18 12:15 02/07/18 12:14 Senna/Docusate Sodium (Senokot S Tab) 2 tab HS PO 01/08/18 21:00 02/07/18 20:59 Sodium Biphosphate/ Sodium Phosphate (Fleet Enema) 132 ml ONE PRN NE 01/08/18 12:15 02/07/18 12:14 Hydroxyzine HCl (Vistaril Tab) 25 mg Q8H PRN PO 01/08/18 12:15 02/07/18 12:14 Al Hydroxide/Mg Hydroxide (Maalox Susp) 30 ml Q6H PRN PO 01/08/18 12:15 02/07/18 12:14 Famotidine (Pepcid Tab) 20 mg Q12 PRN PO 01/08/18 12:15 02/07/18 12:14 Diphenhydramine HCl (Benadryl Cap) 25 mg Q6H PRN PO 01/08/18 12:15 02/07/18 12:14 Amlodipine Besylate (Norvasc Tab) 5 mg QAM PO 01/09/18 09:00 02/08/18 08:59 Atorvastatin Calcium (Lipitor Tab) 5 mg Q2D PO 01/09/18 09:00 02/08/18 08:59 Carvedilol (Coreg Tab) 12.5 mg BID PO 01/08/18 21:00 02/07/18 20:59 Cetirizine HCl (zyrTEC TAB) 10 mg QPM PO 01/08/18 21:00 02/07/18 20:59 Tramadol HCl (Ultram Tab) 25 mg Q8H PRN PO 01/08/18 12:15 02/07/18 12:14 Magnesium Oxide (Mag-Ox Tab) 400 mg QPM PO 01/08/18 21:00 02/07/18 20:59 Pantoprazole Sodium (Protonix Tab) 40 mg QAM PO 01/09/18 09:00 02/08/18 08:59 Review of Systems Constitutional: No fever, No chills Respiratory: + problem reported (on 2L NC post op), No shortness of breath ( while on O2) Cardiovascular: No chest pain Abdomen: No pain, No nausea, No vomiting, No diarrhea, No constipation Musculoskeletal: + problem reported (back pain - controlled) Physical Exam Date Time Temp Pulse Resp B/P (MAP) Pulse Ox O2 Delivery O2 Flow Rate FiO2 01/08/18 14:49 36.6 68 18 136/72 (93) 93 Nasal Cannula 2.0 01/08/18 14:21 36.6 68 20 136/73 (94) 92 2.0 01/08/18 13:50 Nasal Cannula 2.0 01/08/18 13:50 36.4 69 16 138/73 (94) 96 Nasal Cannula 2.0 01/08/18 13:50 Nasal Cannula 2.0 01/08/18 13:05 36.2 67 16 146/74 97 Nasal Cannula 2 01/08/18 12:55 64 12 146/75 97 Nasal Cannula 2 01/08/18 12:45 62 14 157/78 (88) 94 Nasal Cannula 2 01/08/18 12:35 63 14 152/79 (91) 100 Oxymask 10 01/08/18 12:25 67 20 157/75 (110) 99 Oxymask 10 01/08/18 12:19 36.6 63 9 155/75 (90) 99 Oxymask 10 01/08/18 08:36 36.8 62 20 162/78 94 Room Air General Appearance: no apparent distress Head: normocephalic, atraumatic Eyes: normal inspection ENT: hearing grossly normal Respiratory/Chest: lungs clear, normal breath sounds, no respiratory distress Cardiovascular: regular rate, rhythm, no murmur Abdomen/GI: normal bowel sounds, non tender, soft Back: + pertinent finding (dressing C/D/I to thoracic/lumbar spine region) Extremities/Musculoskelatal: normal inspection, no calf tenderness, no pedal edema Neurologic/Psych: alert, oriented x 3 Skin: normal color, warm/dry Assessment & Plan 72y/oM with hx of HTN, HLD, IBS with lactose intolerance, allergic rhinitis and osteoarthritis s/p T11-L4 decompression/fusion surgery day 0 evaluated per surgeon consultation. On 2L post op without sob or respiratory distress likely due to atelectasis. Encouraged to use incentive spirometer. Otherwise vitals wnl. Pain well controlled on tylenol and oxycodone. No other concerns at this time. Osteoarthritis s/p T11-L4 decompression/fusion - Pain well controlled on oxycodone 5-10mg q4H PRN and tylenol - Pt has adequate bowel regimen - Monitor pain and manage as indicated Hypoxia likely due to atelectasis: normal exam - encouraged to use IS - Monitor clinically - O2 per protocol - Wean O2 as tolerated HTN/HLD - BP well controlled on current regimen - Continue home coreg, norvasc and lipitor Allergic Rhinitis - continue home zyrtec GERD - continue prilosec DVT prop: SCDs Code: Full Dispo: pending clinical improvement; off O2 Resident Physician Supervision Note: I was present with Dr. Eduarda Marcus during the history and exam. I discussed the case with the resident and agree with the findings and plan as documented in the note. Any exceptions or clarifications are listed here: Patient's Blood pressure appears to be controlled. Will resume her Blood pressure medicine that patient takes at home. Patient does not have any significant active medical problems. Will continue to monitor patient overnight. However, if patient remains stable. Medical team can sign off after evaluating patient in AM Documented By: Ced Osullivan
[2018-01-08] MEDS: CEFAZOLIN IV 2,000 MG in SYRINGE 0 ML IV SCH (18:00)
[2018-01-08] MEDS ORDERED: NON-FORMULARY MEDICATION (Potassium 1 TAB) PO SCH (21:00)
[2018-01-08] MEDS: MAGNESIUM OXIDE 400 MG TAB PO SCH (21:35)
[2018-01-08] MEDS: CARVEDILOL 12.5 MG TAB PO SCH (21:35)
[2018-01-08] MEDS: DOCUSATE SODIUM/SENNA 50/8.6MG TAB PO SCH (21:35)
[2018-01-08] MEDS: CETIRIZINE HCL 10 MG TAB PO SCH (21:36)
[2018-01-09] VITALS (7 sets, daily range): BP systolic 120–149; BP diastolic 65–73; PULSE 60–73; TEMP 36.4–37.2; O2SAT 91–94
[2018-01-09] MEDS: OXYCODONE HCL IR 5 MG TAB (IMMEDIATE RELEASE) PO PRN ×4 (00:03→20:28)
[2018-01-09] MEDS: CEFAZOLIN IV 2,000 MG in SYRINGE 0 ML IV SCH (02:15)
[2018-01-09] MEDS: SODIUM CHLORIDE 0.9% 1000ML 1,000 ML IV SCH (02:19)
[2018-01-09 05:38] LABS: BASO % 0.1 %; BASO ABS # 0.01 K/uL (0-0.2); EOS % 0.1 %; EOS ABS # 0.01 K/uL (0-0.5); HEMOGLOBIN 10.9 g/dL (14.0-18.0); IG# 0.02 K/uL (0.00-0.02); LYMPH % 14.7 %; LYMPH ABS # 1.99 K/uL (1.2-3.4); MEAN CELL VOLUME 86.7 fL (80-100); MEAN CORPUSCULAR HEMOGLOBIN 29.5 pg (25-34); MEAN CORPUSCULAR HGB CONC 34.1 g/dl (32-36); MEAN PLATELET VOLUME 8.8 fL (7.4-10.4); MONO % 13.3 %; NEUT % 71.7 %; NEUT ABS # 9.75 K/uL (1.4-6.5); PLATELET COUNT 242 K/uL (130-400); RED CELL DISTRIBUTION WIDTH CV 13.5 % (11.5-14.5); RED CELL DISTRIBUTION WIDTH SD 42.9 fL (36.4-46.3); WHITE BLOOD COUNT 13.58 K/uL (4.8-10.8)
[2018-01-09] MEDS ORDERED: NURSING VERBAL MED ORDER ONE ×2 (06:00→10:00)
[2018-01-09 06:11] LABS: CALCIUM 7.8 mg/dl (8.5-10.1); CREATININE 0.86 mg/dl (0.60-1.40); POTASSIUM 3.8 mmol/L (3.5-5.1)
[2018-01-09] MEDS ORDERED: RXC5 PO (07:54)
--- NOTE | 2018-01-09 07:55 | Discharge Instructions ---
Discharge Instructions Date of Service Jan 09, 2018. Admission Reason for Admission: Lumbar Spinal Stenosis Discharge Discharge Diagnosis / Problem: lumbar stenosis Discharge Goals Goal(s): Improve function Activity Recommendations Activity Limitations: per Instructions/Follow-up section . Instructions / Follow-Up Instructions / Follow-Up ACTIVITY RECOMMENDATIONS: SELF CARE INSTRUCTIONS AFTER THORACIC/LUMBAR FUSIONS 1. You may walk to your tolerance. It is good exercise for your legs and back. Expect some back and intermittent leg aches and pains. 2. You may perform "counter-top" level activities (make a sandwich, ashley with a project, etc.). 3. No bending or lifting of more than 10 pounds or back twisting of any nature (roll like a log when turning in bed). 4. You may ride in a car for 20-30 minutes at a time. No driving until after your first visit with your doctor. 5. Frequent changes of position and restricting sitting to 30 minutes at a time will help limit the amount of back spasms and stiffness you may experience. 6. You may discontinue the use of ambulatory aids (cane, crutches, etc.) once your strength and confidence allow. 7. You may rubber insulator the shower and let water strike your incision when you arrive home at least once daily. Do not take a tub bath, sit in a hot tub or go into a swimming pool until after your first recheck in the office. SPECIAL CARE INSTRUCTIONS: VERY IMPORTANT TO READ AND REVIEW A. Your surgical incision has been closed with a cosmetic suture under the skin that will dissolve in about 6 weeks. In 14 days, you can use a pair of clean scissors and cut the suture that is left outside of the skin at the ends of your incision. 1. The small skin tapes can be removed 7 days after surgery if they have not fallen off by that point. 2. You may keep the wound open to air as much as possible to promote healing after post-op day number 5 unless told otherwise by your doctor. 3. If you think the wound looks like it is becoming infected (redness or worsening drainage) and/or you are experiencing fever, chill or worsening back pain and muscle spasms, contact the office so that we may evaluate you as soon as possible. B. Complications are uncommon, but please contact us if you have any signs or symptoms of: 1. wound infection (fever higher than 102.5 degrees F, redness, separation of wound, drainage, or increasing pain from the incision) 2. blood clots in legs (pain, swelling, redness and warmth in legs) 3. urinary tract infection (fever higher than 102.5 degrees F, burning upon urination or increased frequency of urination) 4. nerve problems (inability to walk on your toes or heels, numbness, loss of bowel or bladder control) 5. any other symptoms that concern you C. Please call the office at if you have any concerns or questions about your operation or recovery. D. No smoking! Smoking drastically decreases the chance of a solid fusion. E. Do not take any anti-inflammatory medications (Indocin, Advil, Motrin, Aspirin, Naprosyn, etc.) as these may inhibit the chance of a solid fusion. Tylenol is okay to take for pain. MANAGING PAIN AFTER SPINAL SURGERY 1. Narcotic medication is intended for short-term use and will be provided for surgical pain. Surgical pain usually lasts for a period of 4-6 weeks. Narcotic medication includes Percocet, Vicodin, Darvocet, Tylenol #3 or Lortab. 2. Longer-term pain is more appropriately treated with non-narcotic medication such as Tylenol ES. 3. Muscle spasm is not appropriately treated with narcotics. Muscle relaxers such as Soma, Flexeril or Skelaxin can be used along with Tylenol ES. 4. Remember that we all live with some "aches and pains". This is not unusual or uncommon after an injury or as we get older. a. Back pain is expected and may include muscle spasms for 4 to 6 weeks after surgery. The pain should gradually improve. If the pain worsens for no apparent reason, please contact the office. b. Intermittent leg pain may also be experienced and should not be concerned about unless it worsens for no apparent reason. If so, please contact the office. 5. We will provide appropriate medication within the normal guidelines of their prescribed use. We will also be very cautious and aware of potential abuse and extended duration of patients' medication needs. a. Pain medications are for your comfort and to assist with sleep and rest so that the tissue can heal. They are not provided in order to return to normal activity and should not be used through the day. To do so or worsening pain at night can result from ongoing tissue damage and development of tolerance to the prescribed medicine. 6. Please allow 2-3 days to process refills. Prescriptions will not be mailed but must be picked up at the office. FOLLOW UP VISIT: Keep your scheduled follow-up appointment. Any questions, please call the office at . Current Hospital Diet Patient's current hospital diet: Regular Diet Discharge Diet Recommended Diet: Regular Diet Procedures Procedures Performed: 1. Removal of posterior segmental instrumentation L2-L4. 2 expiration of fusion L2-L4. #3 lumbar decompression medial facetectomies foraminotomies T12-L1 L1-L2 #4 posterior spinal fusion T11-L3. #5 placement posterior segmental instrument T11-L4. #6 interbody fusion L1 to. #7 placement peek cage 8 x 22 mm L1 to. #8 placement of local autograft in the posterior gutters per #9 placement InFUSE: Sponge mesh graft in the posterior gutters and ostial amp in the interbody space. Pending Studies Studies pending at discharge: no Medical Emergencies . Who to Call and When: Medical Emergencies: If at any time you feel your situation is an emergency, please call 911 immediately. . Non-Emergent Contact Non-Emergency issues call your: Primary Care Provider . "Provider Documentation" section prepared by Antonio Wolfe. .
[2018-01-09] MEDS ORDERED: ATORVASTATIN 10 MG TAB PO SCH ×2 (09:00→21:00)
[2018-01-09] MEDS: PANTOprazole SOD 40 MG TAB PO SCH (09:20)
[2018-01-09] MEDS: CARVEDILOL 12.5 MG TAB PO SCH ×2 (09:21→20:29)
--- NOTE | 2018-01-09 09:36 | Anesthesiology Progress Note ---
Anesthesia Post Op Note Date & Time Jan 09, 2018 at 09:35 Vital Signs Vital Signs Past 12 Hours Date Time Temp Pulse Resp B/P (MAP) Pulse Ox O2 Delivery O2 Flow Rate FiO2 01/09/18 07:02 36.5 60 15 127/67 (87) 92 Room Air 01/09/18 03:10 36.5 73 17 128/68 (88) 92 Room Air 01/09/18 00:08 Room Air 01/08/18 23:08 36.6 71 17 122/69 (86) 92 Room Air Notes Mental Status: alert / awake / arousable, participated in evaluation Pt Amnestic to Procedure: Yes Nausea / Vomiting: adequately controlled Pain: adequately controlled Airway Patency, RR, SpO2: stable & adequate BP & HR: stable & adequate Hydration State: stable & adequate Anesthetic Complications: no major complications apparent
[2018-01-09] MEDS: AMLODIPINE BESYLATE 5 MG TAB PO SCH (11:12)
--- NOTE | 2018-01-09 14:25 | Progress Note ---
Progress Note Date of Service Jan 09, 2018. Progress Note Back pain is controlled leg pain improved vital signs stable on exam his excellent strength testing is sitting in a chair appears comfortable. Assessment status post lumbar depression fusion per plan at this time will continue physical therapy advance his bowel regiment anticipate discharge home in next few days.
[2018-01-09] MEDS ORDERED: KETOROLAC TROMETHAMINE 15 MG/ML VIAL IV. PRN (14:30)
--- NOTE | 2018-01-09 15:20 | Hospitalist Progress Note ---
Hospitalist Progress Note Date of Service Jan 09, 2018. Subjective Pt evaluation today including: conversation w/ patient, conversation w/ family , physical exam, chart review, lab review, conversation w/ independent consultant (Dr. Wolfe), review of inpatient medication list Patient seen and evaluated. Pain controlled. Only some surgical site tenderness. Ambulating very well. Vitals stable. Is eager to return home. Anticipated D/C on Saturday. Constitutional: No fever, No chills ENT: + nasal symptoms (chronic ) Respiratory: No cough, No shortness of breath Cardiovascular: No chest pain Abdomen: No pain, No nausea, No vomiting, No diarrhea, No constipation Musculoskeletal: + problem reported (some incisional back pain - controlled) , No swelling, No calf pain Male : No dysuria Neurologic: No numbness/tingling Heme: No abnormal bleeding/bruising Medications Current Inpatient Medications Medications (Trade) Dose Ordered Sig/Christine Route Start Time Stop Time Status Last Admin Dose Admin Promethazine HCl 12.5 mg/Sodium Chloride 50.5 ml @ 202 mls/hr Q6H PRN IV 01/08/18 12:15 02/07/18 12:14 Ondansetron HCl (Zofran Inj) 4 mg Q6H PRN IV 01/08/18 12:15 02/07/18 12:14 Metoclopramide HCl (Reglan Inj) 10 mg Q6H PRN IV 01/08/18 12:15 02/07/18 12:14 Lorazepam (Ativan Tab) 0.5 mg Q8H PRN PO 01/08/18 12:15 02/07/18 12:14 Lorazepam 0.5 mg/ Syringe 0.25 ml @ 1 mls/min Q8H PRN IV 01/08/18 12:15 02/07/18 12:14 Pneumococcal Polysaccharide Vaccine 1 ea PRN PRN N/A 01/08/18 12:15 02/07/18 12:14 Influenza Virus Vacc Triv Types A&B 1 ea PRN PRN N/A 01/08/18 12:15 02/07/18 12:14 Polyethylene (Miralax Powder Packet) 17 gm Q6 PO 01/10/18 06:00 02/09/18 05:59 Bisacodyl (Dulcolax Supp) 10 mg DAILY PRN [place] 01/08/18 12:15 02/07/18 12:14 Magnesium Hydroxide (Milk Of Magnesia Susp) 30 ml DAILY PRN PO 01/08/18 12:15 02/07/18 12:14 Hydromorphone HCl (Dilaudid Inj) 0.5-1mg prn moder... Q3H PRN IV 01/08/18 14:00 01/22/18 13:59 Oxycodone HCl (Roxicodone Immediate Rel Tab) 5-10mg prn moderate to sev... Q4H PRN PO 01/08/18 14:00 01/22/18 13:59 01/09/18 09:25 10 MG Acetaminophen (Tylenol Tab) 1,000 mg Q8H PRN PO 01/08/18 12:15 02/07/18 12:14 Acetaminophen 100 ml @ 400 mls/hr Q8H PRN IV 01/08/18 12:15 02/07/18 12:14 Naloxone HCl (Narcan Inj) 0.1 mg Q5M PRN IV 01/08/18 12:15 02/07/18 12:14 Senna/Docusate Sodium (Senokot S Tab) 2 tab HS PO 01/08/18 21:00 02/07/18 20:59 01/08/18 21:35 2 TAB Sodium Biphosphate/ Sodium Phosphate (Fleet Enema) 132 ml ONE PRN [place] 01/08/18 12:15 02/07/18 12:14 Hydroxyzine HCl (Vistaril Tab) 25 mg Q8H PRN PO 01/08/18 12:15 02/07/18 12:14 Al Hydroxide/Mg Hydroxide (Maalox Susp) 30 ml Q6H PRN PO 01/08/18 12:15 02/07/18 12:14 Famotidine (Pepcid Tab) 20 mg Q12 PRN PO 01/08/18 12:15 02/07/18 12:14 Diphenhydramine HCl (Benadryl Cap) 25 mg Q6H PRN PO 01/08/18 12:15 02/07/18 12:14 Amlodipine Besylate (Norvasc Tab) 5 mg QAM PO 01/09/18 09:00 02/08/18 08:59 01/09/18 11:12 5 MG Carvedilol (Coreg Tab) 12.5 mg BID PO 01/08/18 21:00 02/07/18 20:59 01/09/18 09:21 12.5 MG Cetirizine HCl (zyrTEC TAB) 10 mg QPM PO 01/08/18 21:00 02/07/18 20:59 01/08/18 21:36 10 MG Tramadol HCl (Ultram Tab) 25 mg Q8H PRN PO 01/08/18 12:15 02/07/18 12:14 Magnesium Oxide (Mag-Ox Tab) 400 mg QPM PO 01/08/18 21:00 02/07/18 20:59 01/08/18 21:35 400 MG Pantoprazole Sodium (Protonix Tab) 40 mg QAM PO 01/09/18 09:00 02/08/18 08:59 01/09/18 09:20 40 MG Atorvastatin Calcium (Lipitor Tab) 5 mg Q2D@2100 PO 01/09/18 21:00 02/08/18 20:59 Ketorolac Tromethamine (Toradol Inj) 15 mg Q6H PRN IV. 01/09/18 14:30 01/14/18 14:29 Objective Vital Signs Date Time Temp Pulse Resp B/P (MAP) Pulse Ox O2 Delivery O2 Flow Rate FiO2 01/09/18 11:05 36.4 62 16 131/72 (91) 94 Room Air 01/09/18 10:47 65 94 01/09/18 07:10 Room Air 01/09/18 07:02 36.5 60 15 127/67 (87) 92 Room Air 01/09/18 03:10 36.5 73 17 128/68 (88) 92 Room Air 01/09/18 00:08 Room Air 01/08/18 23:08 36.6 71 17 122/69 (86) 92 Room Air 01/08/18 21:34 80 137/76 (96) 01/08/18 17:50 36.7 78 17 135/75 (95) 90 Room Air 01/08/18 16:50 36.5 71 16 151/85 (107) 94 Nasal Cannula 2.0 Physical Exam General Appearance: WD/WN, no apparent distress Eyes: sclerae normal ENT: hearing grossly normal Neck: supple, no JVD, trachea midline Respiratory/Chest: lungs clear, normal breath sounds, no respiratory distress, no accessory muscle use Cardiovascular: regular rate, rhythm Abdomen: normal bowel sounds, non tender, soft Extremities: no pedal edema, no calf tenderness Neurologic/Psychiatric: no motor/sensory deficits, alert, oriented x 3 Skin: normal color Laboratory Results Last 24 Hours Test 01/09/18 05:17 White Blood Count 13.58 K/uL Red Blood Count 3.69 M/uL Hemoglobin 10.9 g/dL Hematocrit 32.0 % Mean Corpuscular Volume 86.7 fL Mean Corpuscular Hemoglobin 29.5 pg Mean Corpuscular Hemoglobin Concent 34.1 g/dl Platelet Count 242 K/uL Mean Platelet Volume 8.8 fL Neutrophils (%) (Auto) 71.7 % Lymphocytes (%) (Auto) 14.7 % Monocytes (%) (Auto) 13.3 % Eosinophils (%) (Auto) 0.1 % Basophils (%) (Auto) 0.1 % Neutrophils # (Auto) 9.75 K/uL Lymphocytes # (Auto) 1.99 K/uL Monocytes # (Auto) 1.80 K/uL Eosinophils # (Auto) 0.01 K/uL Basophils # (Auto) 0.01 K/uL RDW Standard Deviation 42.9 fL RDW Coefficient of Variation 13.5 % Immature Granulocyte % (Auto) 0.1 % Immature Granulocyte # (Auto) 0.02 K/uL Sodium Level 137 mmol/L Potassium Level 3.8 mmol/L Chloride Level 103 mmol/L Carbon Dioxide Level 27 mmol/L Anion Gap 7.0 mmol/L Blood Urea Nitrogen 10 mg/dl Creatinine 0.86 mg/dl Est Creatinine Clear Calc Drug Dose 74.8 ml/min Estimated GFR () 99.0 Estimated GFR (Non- 85.4 BUN/Creatinine Ratio 12.0 Random Glucose 113 mg/dl Calcium Level 7.8 mg/dl Assessment and Plan 72y/oM with hx of HTN, HLD, IBS with lactose intolerance, allergic rhinitis and osteoarthritis s/p T11-L4 decompression/fusion surgery day 0 evaluated per surgeon consultation. On 2L post op without sob or respiratory distress likely due to atelectasis. Encouraged to use incentive spirometer. Otherwise vitals wnl. Pain well controlled on tylenol and oxycodone. No other concerns at this time. OA S/P Decompression/Fusion: - Pain management, IVF, PT/OT, DVT Prophylaxis, and Surgical Intervention per primary team Reported Hypoxia: - No documented desatuations but maybe happened post-operatively? has appropriate saturations on RA at this time - lungs are clear with good aeration - continue incentive spirometry and ambulation within paramenters of surgery HTN/HLD: STABLE - Norvasc 5 mg daily; Lipitor 5 mg Q2D; Coreg 12.5 mg BID Chronic Allergic Rhinitis: - Zyrtec 10 mg daily Patient is doing well post-operatively and chronic conditions are stable. Hospitalist service will sign-off at this time. Do not hesitate to contact us for any changes in clinical status. Continued [facility] stay due to: ambulation difficulties, other (post-surgical management) Discharge planning: home
[2018-01-09] MEDS: DOCUSATE SODIUM/SENNA 50/8.6MG TAB PO SCH (20:29)
[2018-01-09] MEDS: MAGNESIUM OXIDE 400 MG TAB PO SCH (20:30)
[2018-01-09] MEDS: CETIRIZINE HCL 10 MG TAB PO SCH (21:09)
[2018-01-10] MEDS: OXYCODONE HCL IR 5 MG TAB (IMMEDIATE RELEASE) PO PRN ×4 (00:30→14:00)
[2018-01-10] MEDS: POLYETHYLENE (MIRALAX) 17 GM PACK PO SCH ×2 (05:21→12:00)
[2018-01-10 07:08] VITALS: BP 142/72; PULSE 66; TEMP 36.4; O2SAT 92
[2018-01-10] MEDS: CARVEDILOL 12.5 MG TAB PO SCH (09:23)
[2018-01-10] MEDS: AMLODIPINE BESYLATE 5 MG TAB PO SCH (09:23)
[2018-01-10] MEDS: PANTOprazole SOD 40 MG TAB PO SCH (10:24)
--- NOTE | 2018-01-10 13:14 | Discharge Summary ---
Orthopedic Discharge Summary Admission Date/Reason Jan 08, 2018 at 09:25 Lumbar Spinal Stenosis. Discharge Date/Disposition Jan 10, 2018 Home Diagnosis Principal Diagnosis: Lumbar spinal stenosis Admission Physical Exam As per Admitting History & Physical. Hospital Course Patient underwent lumbar decompression fusion tolerated as well as taken the orthopedic for postoperative. Postop day #1 he was up and amatory progressed the postop day #2. Pain well controlled MJ drain decreasing appropriately subsequently discharged home postop day #3. Discharge orders and instructions can be found in the chart for further review. Discharge Instructions Please refer to the electronic Patient Visit Report (Discharge Instructions) for additional information.
[2018-01-10 13:38] VITALS: BP 142/72; PULSE 66; TEMP 36.4; O2SAT 92
== END 2018-01-10 15:10 | disposition home or self-care (01) | DRG 454 ==
LOC: C.ACU 08:03 → C.3E 09:25 → ENRESERV 12:55
PROVIDERS: ADMIT Orthopaedic Surgery Orthopaedic Surgery of the Spine; ATTEND Orthopaedic Surgery Orthopaedic Surgery of the Spine
PROC: 0SP004Z Removal of Internal Fixation Device from Lumbar Vertebral Joint, Open Approach (ICD-10-PCS; principal; 2018-01-08 10:15)
PROC: 0SG00AJ Fusion of Lumbar Vertebral Joint with Interbody Fusion Device, Posterior Approach, Anterior Column, Open Approach (ICD-10-PCS; principal; 2018-01-08 10:15)
PROC: 0ST20ZZ Resection of Lumbar Vertebral Disc, Open Approach (ICD-10-PCS; principal; 2018-01-08 10:15)
PROC: 0SG1071 Fusion of 2 or more Lumbar Vertebral Joints with Autologous Tissue Substitute, Posterior Approach, Posterior Column, Open Approach (ICD-10-PCS; principal; 2018-01-08 10:15)
PROC: 0RG6071 Fusion of Thoracic Vertebral Joint with Autologous Tissue Substitute, Posterior Approach, Posterior Column, Open Approach (ICD-10-PCS; principal; 2018-01-08 10:15)
DX: M48.062 Spinal stenosis, lumbar region with neurogenic claudication (principal); J98.11 Atelectasis; R09.02 Hypoxemia; I10 Essential (primary) hypertension; E78.5 Hyperlipidemia, unspecified; J30.9 Allergic rhinitis, unspecified; K21.9 Gastro-esophageal reflux disease without esophagitis; E73.9 Lactose intolerance, unspecified; E66.9 Obesity, unspecified; Z68.30 Body mass index [BMI] 30.0-30.9, adult; Z98.1 Arthrodesis status; Z87.891 Personal history of nicotine dependence; Z79.899 Other long term (current) drug therapy; Z88.5 Allergy status to narcotic agent; Z88.8 Allergy status to other drugs, medicaments and biological substances